=== PATIENT | female | born 1975 | race Caucasian/White ===

== ENCOUNTER 2016-07-07 13:22 | Emergency (ER) | payer BC ==
[2016-07-07] MEDS ORDERED: Adenosine 6 MG/2 ML SDV IVPUSH ONE (13:40)
[2016-07-07] MEDS ORDERED: Adenosine 12 MG/4 ML SDV IVPUSH ONE ×2 (13:47→13:56)
[2016-07-07] MEDS ORDERED: Sodium Chloride 0.9% 10 ML Syringe FLUSH PRN (13:48)
--- NOTE | 2016-07-07 13:50 | EDM.PDOC ---
ED HPI GENERAL MEDICAL PROBLEM - General Chief Complaint: Cardiovascular Problem Stated Complaint: COMING OWN VEHICLE [id number] Time Seen by Provider: 07/07/16 13:35 Source of Information: Reports: Patient, Provider (Dr. Mata), RN, RN Notes Reviewed History Limitations: Reports: No Limitations - History of Present Illness INITIAL COMMENTS - FREE TEXT/NARRATIVE: Arrives by POV with 3 days of rapid heart rate. Denies chest pain. Admits to mild shortness of breath. Onset: Today Location: Reports: Chest Quality: Reports: Ache Severity: Severe Improves with: Reports: None Worsens with: Reports: None Associated Symptoms: Reports: No Other Symptoms Left Ankle Pain Score (Numeric/FACES): 5 - Related Data Allergies Allergy/AdvReac Type Severity Reaction Status Date / Time No Known Allergies Allergy Verified 07/09/16 20:10 Home Meds: Home Meds Acetaminophen [Tylenol] 650 mg PO DAILY 07/07/16 [History] Ibuprofen [Motrin] 800 mg PO Q6H 07/07/16 [History] diphenhydrAMINE HCl [Benadryl] 25 mg PO DAILY 07/07/16 [History] Social & Family History - Family History Family Medical History: Noncontributory - Tobacco Use Smoking Status *Q: Former Smoker - Alcohol Use Alcohol Use History: No ED ROS GENERAL - Review of Systems Review Of Systems: ROS reveals no pertinent complaints other than HPI. ED EXAM, GENERAL - Physical Exam Exam: See Below Exam Limited By: No Limitations General Appearance: Obese Neck: Normal Inspection, Supple, Non-Tender, Full Range of Motion Respiratory/Chest: No Respiratory Distress, Lungs Clear, Normal Breath Sounds, No Accessory Muscle Use, Chest Non-Tender Cardiovascular: Regular Rate, Rhythm GI/Abdominal: Other (benign obese abdomen) Back Exam: Normal Inspection, Full Range of Motion, NT Extremities: Normal Inspection, Normal Range of Motion, Non-Tender, Normal Capillary Refill, No Pedal Edema Neurological: Alert, Oriented, CN II-XII Intact, Normal Cognition, Normal Gait, Normal Reflexes, No Motor/Sensory Deficits Psychiatric: Normal Affect, Normal Mood Skin Exam: Warm, Dry, Intact, Normal Color, No Rash EKG INTERPRETATION EKG Date: 07/07/16 Time: 13:31 Rhythm: other (sinus tachycardia.) Rate (beats/min): 151 [place]: normal P-wave: present ST-T: normal (abnormal T, consider ischemia, diffuse leads.) QT: normal Comparison: NA - no prior EKG EKG Interpretation Comments: EKG #2 done at 1413 showed sinus rhythm with a rate of 87 following adenosine 12mg IVP. Course - Vital Signs Last Recorded V/S: Last Vital Signs Temp 36.7 C 07/07/16 13:25 Pulse 155 H 07/07/16 13:25 Resp 16 07/07/16 13:25 BP 125/70 07/07/16 13:25 Pulse Ox 100 07/07/16 13:25 - Orders/Labs/Meds Labs: Laboratory Tests 07/07/16 07/07/16 07/07/16 Range/Units 14:00 14:00 14:00 WBC 6.9 (5.0-10.0) 10^3/uL RBC 3.97 L (4.2-5.4) 10^6/uL Hgb 11.9 L (12.0-16.0) g/dL Hct 35.7 L (37.0-47.0) % MCV 89.9 (80-100) fL MCH 30.0 (27.0-34.0) pg MCHC 33.3 (33.0-35.0) g/dL Plt Count 150 (150-450) 10^3/uL Neut % (Auto) 58.3 (42.2-75.2) % Lymph % (Auto) 26.1 (20.5-50.1) % [place] % (Auto) 7.0 (2-8) % Eos % (Auto) 7.7 H (1.0-3.0) % Baso % (Auto) 0.9 (0.0-1.0) % D-Dimer, Quantitative < 100 (0-400) ng/mL Sodium 138 (135-145) mmol/L Potassium 4.0 (3.6-5.0) mmol/L Chloride 107 (101-111) mmol/L Carbon Dioxide 26.0 (21.0-31.0) mmol/L Anion Gap 9.0 BUN 15 (7-18) mg/dL Creatinine 0.8 (0.6-1.3) mg/dL Est Cr Clr Drug Dosing TNP Estimated GFR (MDRD) > 60 BUN/Creatinine Ratio 18.75 Glucose 100 (74-105) mg/dL Calcium 8.2 L (8.4-10.2) mg/dl Magnesium 1.7 L (1.8-2.5) mg/dL Total Bilirubin 0.5 (0.2-1.0) mg/dL AST 23 (10-42) IU/L ALT 30 (10-60) IU/L Alkaline Phosphatase 82 (42-121) IU/L Troponin I < 0.02 (0.00-0.02) ng/ml Total Protein 6.2 L (6.7-8.2) g/dl Albumin 3.4 (3.2-5.5) g/dl Globulin 2.8 Albumin/Globulin Ratio 1.21 TSH, Ultra Sensitive (0.35-7.0) uIu/mL 07/07/16 Range/Units 14:00 WBC (5.0-10.0) 10^3/uL RBC (4.2-5.4) 10^6/uL Hgb (12.0-16.0) g/dL Hct (37.0-47.0) % MCV (80-100) fL MCH (27.0-34.0) pg MCHC (33.0-35.0) g/dL Plt Count (150-450) 10^3/uL Neut % (Auto) (42.2-75.2) % Lymph % (Auto) (20.5-50.1) % [place] % (Auto) (2-8) % Eos % (Auto) (1.0-3.0) % Baso % (Auto) (0.0-1.0) % D-Dimer, Quantitative (0-400) ng/mL Sodium (135-145) mmol/L Potassium (3.6-5.0) mmol/L Chloride (101-111) mmol/L Carbon Dioxide (21.0-31.0) mmol/L Anion Gap BUN (7-18) mg/dL Creatinine (0.6-1.3) mg/dL Est Cr Clr Drug Dosing Estimated GFR (MDRD) BUN/Creatinine Ratio Glucose (74-105) mg/dL Calcium (8.4-10.2) mg/dl Magnesium (1.8-2.5) mg/dL Total Bilirubin (0.2-1.0) mg/dL AST (10-42) IU/L ALT (10-60) IU/L Alkaline Phosphatase (42-121) IU/L Troponin I (0.00-0.02) ng/ml Total Protein (6.7-8.2) g/dl Albumin (3.2-5.5) g/dl Globulin Albumin/Globulin Ratio TSH, Ultra Sensitive 2.06 (0.35-7.0) uIu/mL Meds: Medications Discontinued Medications Generic Name Dose Route Start Last Admin Trade Name Wale PRN Reason Stop Dose Admin Adenosine 6 mg 07/07/16 13:40 07/07/16 13:50 Adenocard IVPUSH 07/07/16 13:41 6 mg NOW ONE Administration Adenosine 12 mg 07/07/16 13:47 07/07/16 13:54 Adenocard IVPUSH 07/07/16 13:48 12 mg NOW ONE Administration Adenosine 12 mg 07/07/16 13:56 07/07/16 14:02 Adenocard IVPUSH 07/07/16 13:57 12 mg NOW ONE Administration Sodium Chloride 10 ml 07/07/16 13:48 07/07/16 14:03 Saline Flush FLUSH 10 ml ASDIRECTED PRN Administration Keep Vein Open - Re-Assessments/Exams Free Text/Narrative Re-Assessment/Exam: 07/07/16 14:55 I explained the exam findings, results of all diagnostic tests, working diagnosis, and any potential or additionally considered diagnoses, treatment/ disposition plan, self/home care instructions, rational for the diagnosis/ treatment plan/disposition plan, anticipated course of illness, and follow up instructions to the pt and/or pts family or guardian. The pt and/or pts family or guardian acknowledges understanding of the above explanation(s), and of the signs and symptoms which should prompt the return of the pt to the ER should those or any other concerning symptoms develop. Departure - Departure Time of Disposition: 14:56 Disposition: Home, Self-Care 01 Condition: good Clinical Impression: Paroxysmal supraventricular tachycardia Instructions: Paroxysmal Supraventricular Tachycardia Referrals: PCP,None [Primary Care Provider] - Forms: ED Department Discharge Additional Instructions: Avoid caffeine, nicotine, alcohol, and any over the counter decongestants, as these may cause your heart have a fast rate (SVT episode). Follow up in clinic with your doctor in the 10 days for recheck. Return to ER if your heart rate goes over 110 and remains there for more than 20 to 30 minutes, or if you feel lightheaded, faint, short of breath, or develop chest pain.
[2016-07-07 14:24] LABS: CHLORIDE,CL 107 mmol/L (101-111); SODIUM,NA 138 mmol/L (135-145)
[2016-07-07 14:25] VITALS: BP 125/70
--- NOTE | 2016-07-13 12:24 | EKG ---
07/07/2016 - SAMEER TAYLOR - TIME: 1413 hours. I reviewed the EKG and agree the machine's reading. [facility] /[id number]
--- NOTE | 2016-07-13 13:24 | EKG ---
07/07/2016 - SAMEER TAYLOR - TIME: 1331 hours. I reviewed the EKG and agree with the machine's reading. [facility] /[id number]
== END 2016-07-07 15:36 | disposition home or self-care (01) ==
LOC: DL.ED 13:22
DX: I47.1 Supraventricular tachycardia (principal); Z87.891 Personal history of nicotine dependence
CPT/HCPCS: 36415; 80053; 83735; 84443; 84484; 85025; 85379; 93005; 93010; 96374; 96375; 99284; A9270; J0153; J7050

== ENCOUNTER 2016-07-09 19:07 | Emergency (ER) | payer BC ==
[2016-07-09] MEDS ORDERED: Adenosine 6 MG/2 ML SDV IVPUSH ONE (19:13)
[2016-07-09] MEDS ORDERED: Sodium Chloride 0.9% 1,000 ML IV ONE (19:20)
[2016-07-09] MEDS ORDERED: Adenosine 12 MG/4 ML SDV IVPUSH ONE (19:25)
[2016-07-09] MEDS ORDERED: Adenosine 12 MG/4 ML SDV ONE (19:26)
[2016-07-09] MEDS ORDERED: Metoprolol Tartrate 5 MG/5 ML SDV IVPUSH ONE (19:36)
--- NOTE | 2016-07-09 19:38 | EDM.PDOC ---
ED HPI GENERAL MEDICAL PROBLEM - General Chief Complaint: Cardiovascular Problem Stated Complaint: SUPER VENTRICAL TACHYCARDIA? Time Seen by Provider: 07/09/16 19:15 Source of Information: Reports: Patient History Limitations: Reports: No Limitations - History of Present Illness INITIAL COMMENTS - FREE TEXT/NARRATIVE: c/o of rapid heart rate similar to episode on Wednesday. No chest pain slight SOB , notes episode started this am and rate in 120's this pacheco reported 150 when checked with fit bit Onset: Today Duration: Hour(s):, Recurring Quality: Reports: Same as Previous Episode Severity: Moderate Improves with: Reports: None Associated Symptoms: Denies: Chest Pain, Nausea/Vomiting Headache Pain Score (Numeric/FACES): 8 - Related Data Allergies Allergy/AdvReac Type Severity Reaction Status Date / Time No Known Allergies Allergy Verified 07/09/16 20:10 Home Meds: Home Meds Metoprolol Tartrate 25 mg PO ASDIRECTED 07/10/16 [History] Metoprolol Tartrate 50 mg PO DAILY 07/10/16 [History] Past Medical History Cardiovascular History: Reports: Other (See Below) Other Cardiovascular History: SVT 8-19 years ago that required adenosine x 6 mg and 12 mg [employer] PERSON History: Reports: Other (See Below) Other OB/BYN History: 1996 and v-back 2001 Musculoskeletal History: Reports: Fracture - Past Surgical History GI Surgical History: Reports: Cholecystectomy Other GI Surgeries/Procedures: 2003 Musculoskeletal Surgical History: Reports: Other (See Below) Other Musculoskeletal Surgeries/Procedures:: bilateral ankle and wrist fractures Social & Family History - Family History Family Medical History: Noncontributory - Tobacco Use Smoking Status *Q: Current Every Day Smoker Years of Tobacco use: 15 Packs/Tins Daily: 0.5 Second Hand Smoke Exposure: No - Caffeine Use Caffeine Use: Reports: Coffee, Tea Other Caffeine Use: stopped caffine 2 days ago - Alcohol Use Days Per Week of Alcohol Use: 1 Number of Drinks Per Day: 1 Total Drinks Per Week: 1 - Recreational Drug Use Recreational Drug Use: No ED ROS GENERAL - Review of Systems Review Of Systems: See Below Constitutional: Reports: No Symptoms HEENT: Reports: No Symptoms Respiratory: Reports: Shortness of Breath Cardiovascular: Reports: Palpitations. Denies: Chest Pain GI/Abdominal: Reports: No Symptoms : Reports: No Symptoms Musculoskeletal: Reports: No Symptoms Skin: Reports: No Symptoms Neurological: Reports: No Symptoms Psychiatric: Reports: No Symptoms ED EXAM, GENERAL - Physical Exam Exam: See Below Exam Limited By: No Limitations General Appearance: Alert, Anxious, Mild Distress Eye Exam: Bilateral Eye: EOMI, PERRL Ears: Normal External Exam, Normal TMs Nose: Normal Inspection Throat/Mouth: Normal Inspection Head: Atraumatic, Normocephalic Neck: Normal Inspection Respiratory/Chest: No Respiratory Distress, Lungs Clear, Normal Breath Sounds Cardiovascular: Regular Rate, Rhythm, Tachycardia GI/Abdominal: Normal Bowel Sounds Extremities: Normal Inspection Neurological: Alert, Oriented Psychiatric: Anxious Skin Exam: Warm, Dry, Intact, Normal Color Course - Vital Signs Last Recorded V/S: Last Vital Signs Temp 97.8 F 07/09/16 19:15 Pulse 74 07/09/16 20:38 Resp 16 07/09/16 20:38 BP 107/74 07/09/16 20:38 Pulse Ox 100 07/09/16 20:38 - Orders/Labs/Meds Labs: Laboratory Tests 07/09/16 07/09/16 07/09/16 Range/Units 19:17 19:17 19:17 WBC 8.1 (5.0-10.0) 10^3/uL RBC 4.48 (4.2-5.4) 10^6/uL Hgb 13.4 (12.0-16.0) g/dL Hct 39.4 (37.0-47.0) % MCV 87.9 (80-100) fL MCH 29.9 (27.0-34.0) pg MCHC 34.0 (33.0-35.0) g/dL Plt Count 174 (150-450) 10^3/uL Neut % (Auto) 62.2 (42.2-75.2) % Lymph % (Auto) 25.5 (20.5-50.1) % [place] % (Auto) 5.9 (2-8) % Eos % (Auto) 5.7 H (1.0-3.0) % Baso % (Auto) 0.7 (0.0-1.0) % Sodium 137 (135-145) mmol/L Potassium 3.9 (3.6-5.0) mmol/L Chloride 105 (101-111) mmol/L Carbon Dioxide 26.0 (21.0-31.0) mmol/L Anion Gap 9.9 BUN 12 (7-18) mg/dL Creatinine 0.8 (0.6-1.3) mg/dL Est Cr Clr Drug Dosing TNP Estimated GFR (MDRD) > 60 BUN/Creatinine Ratio 15.00 Glucose 104 (74-105) mg/dL Calcium 8.7 (8.4-10.2) mg/dl Total Bilirubin 0.4 (0.2-1.0) mg/dL AST 29 (10-42) IU/L ALT 34 (10-60) IU/L Alkaline Phosphatase 86 (42-121) IU/L CK-MB (CK-2) 1.70 (0.4-4.7) ng/mL Troponin I < 0.02 (0.00-0.02) ng/ml Total Protein 7.0 (6.7-8.2) g/dl Albumin 3.8 (3.2-5.5) g/dl Globulin 3.2 Albumin/Globulin Ratio 1.19 Amylase 35 (28-100) U/L Lipase 25 (22-51) U/L Ethyl Alcohol 7 mg/dL Meds: Medications Discontinued Medications Generic Name Dose Route Start Last Admin Trade Name Onelq PRN Reason Stop Dose Admin Adenosine 6 mg 07/09/16 19:13 07/09/16 19:22 Adenocard IVPUSH 07/09/16 19:14 6 mg NOW ONE Administration Adenosine Confirm 07/09/16 19:26 07/09/16 19:39 Adenocard Administered 07/09/16 19:27 Not Given Dose 12 mg .ROUTE .STK-MED ONE Adenosine 12 mg 07/09/16 19:25 07/09/16 19:27 Adenocard IVPUSH 07/09/16 19:26 12 mg NOW ONE Administration Sodium Chloride 1,000 mls @ 999 mls/hr 07/09/16 19:20 07/09/16 19:20 Normal Saline IV 07/09/16 20:20 999 mls/hr .BOLUS ONE Administration Metoprolol Tartrate 2.5 mg 07/09/16 19:36 07/09/16 19:41 Lopressor IVPUSH 07/09/16 19:37 2.5 mg ONETIME ONE Administration Metoprolol Tartrate Confirm 07/09/16 20:18 07/09/16 21:00 Lopressor Administered 07/09/16 20:19 Not Given Dose 50 mg .ROUTE .STK-MED ONE Metoprolol Tartrate 50 mg 07/09/16 20:18 Lopressor PO 07/09/16 20:19 .STK-MED ONE - Re-Assessments/Exams Free Text/Narrative Re-Assessment/Exam: 07/12/16 06:33 adenosine 6mg no response, [id number] with conversion to NSR, followed with lopressor, Observed with continued rate control. Departure - Departure Time of Disposition: 20:41 Disposition: Home, Self-Care 01 Condition: good Clinical Impression: Paroxysmal supraventricular tachycardia Instructions: Paroxysmal Supraventricular Tachycardia, [id number] Referrals: PCP,None [Primary Care Provider] - Forms: ED Department Discharge Additional Instructions: metoprolol 25mg one twice daily monitor blood pressure and heart rate follow up urgently if HR greater than 120 or less than 60 avoid caffeine and energy drinks increase fluid intake establish primary care and follow up next week return to ER if symptoms return
[2016-07-09 19:43] LABS: CHLORIDE,CL 105 mmol/L (101-111); SODIUM,NA 137 mmol/L (135-145)
[2016-07-09] MEDS ORDERED: Metoprolol Tartrate 50 MG Tab PO ONE (20:18)
[2016-07-09] MEDS ORDERED: Metoprolol Tartrate 50 MG Tab ONE (20:18)
[2016-07-09 20:38] VITALS: BP 107/74
--- NOTE | 2016-07-13 12:06 | EKG ---
07/09/2016 - SAMEER TAYLOR - TIME: 1927hours. I reviewed the EKG and agreed with the machine's reading. [facility] /[id number]
--- NOTE | 2016-07-13 12:06 | EKG ---
07/09/2016 - SAMEER TAYLOR - TIME: 1917 hours. I reviewed the EKG and agree with the machine's reading. [facility] /[id number]
== END 2016-07-09 20:51 | disposition home or self-care (01) ==
LOC: DL.ED 19:07
DX: I47.1 Supraventricular tachycardia (principal); F17.210 Nicotine dependence, cigarettes, uncomplicated; Z90.49 Acquired absence of other specified parts of digestive tract; Z79.899 Other long term (current) drug therapy
CPT/HCPCS: 36415; 80053; 82150; 82553; 83690; 84484; 85025; 93005; 93010; 96361; 96374; 96375; 99285; A9270; G0480; J0153; J7030; 99284; J3490

== ENCOUNTER 2016-07-10 17:43 | Emergency (ER) | payer BC ==
[~2016-07-10 17:43] MED LIST: Adenosine 12 MG/4 ML SDV IVPUSH ONE; Sodium Chloride 0.9% 1,000 ML IV ONE
[2016-07-10] MEDS ORDERED: Adenosine 12 MG/4 ML SDV IVPUSH ONE (18:00)
[2016-07-10] MEDS ORDERED: Adenosine 12 MG/4 ML SDV ONE (18:02)
[2016-07-10 18:11] LABS: CHLORIDE,CL 105 mmol/L (101-111); SODIUM,NA 137 mmol/L (135-145)
[2016-07-10] MEDS ORDERED: Metoprolol Tartrate 5 MG/5 ML SDV IVPUSH ONE (18:33)
[2016-07-10 18:40] VITALS: BP 128/91
--- NOTE | 2016-07-10 19:16 | EDM.PDOC ---
ED HPI GENERAL MEDICAL PROBLEM - General Chief Complaint: Cardiovascular Problem Stated Complaint: SVT Time Seen by Provider: 07/10/16 17:50 Source of Information: Reports: Patient History Limitations: Reports: No Limitations - History of Present Illness INITIAL COMMENTS - FREE TEXT/NARRATIVE: History of SVT about 8 or 9 years ago when in [place]. Treated and then had recurrence of SVT. 2 days ago was here in the ED for SVT associated with palpitations and without chest pain, shortness of breath., nausea, diaphoresis. In the ED 2 days ago treated with 6 mg, 12 mg adenosine. Labs done were negative. Came to ED yesterday for SVT which was responsive to adenosine. She was started on metoprolo 25 mg daily. She had symptoms of SVT and took Metoprolo 25 mg three times today for a total of 75 mg. There was no blood pressure problems associated with the symptoms or with the interventions in the ED. Labs have been negative including troponin, d dimer, TSH was normal. Comprehensive metabolic panels have been normal. Onset: Today, Sudden Duration: Getting Worse, Intermittent Location: Reports: Chest Quality: Reports: Same as Previous Episode Severity: Moderate Improves with: Reports: Medication Worsens with: Reports: None Associated Symptoms: Reports: No Other Symptoms Treatments [employer]: Reports: Other Medication(s) - Related Data Allergies Allergy/AdvReac Type Severity Reaction Status Date / Time No Known Allergies Allergy Verified 07/09/16 20:10 Home Meds: Home Meds Metoprolol Tartrate 25 mg PO ASDIRECTED 07/10/16 [History] Metoprolol Tartrate 50 mg PO DAILY 07/10/16 [History] Past Medical History Cardiovascular History: Reports: Other (See Below) Other Cardiovascular History: SVT 8-19 years ago that required adenosine x 6 mg and 12 mg [employer] History: Reports: Other (See Below) Other OB/BYN History: 1996 and v-back 2001 Musculoskeletal History: Reports: Fracture - Past Surgical History Musculoskeletal Surgical History: Reports: Other (See Below) Social & Family History - Family History Family Medical History: Noncontributory - Tobacco Use Smoking Status *Q: Current Every Day Smoker Years of Tobacco use: 15 Packs/Tins Daily: 0.5 Second Hand Smoke Exposure: No - Caffeine Use Caffeine Use: Reports: Coffee, Tea Other Caffeine Use: stopped caffine 2 days ago - Alcohol Use Days Per Week of Alcohol Use: 1 Number of Drinks Per Day: 1 Total Drinks Per Week: 1 - Recreational Drug Use Recreational Drug Use: No ED ROS GENERAL - Review of Systems Review Of Systems: ROS reveals no pertinent complaints other than HPI. ED EXAM, GENERAL - Physical Exam Exam: See Below Exam Limited By: No Limitations General Appearance: Alert, WD/WN, No Apparent Distress Eye Exam: Bilateral Eye: Normal Inspection Ears: Normal External Exam Nose: Normal Inspection Throat/Mouth: Normal Inspection Head: Atraumatic Neck: Normal Inspection, Supple Respiratory/Chest: Lungs Clear, Normal Breath Sounds, Chest Non-Tender Cardiovascular: Normal Peripheral Pulses, Regular Rate, Rhythm, No Edema, No Murmur, No Rub Peripheral Pulses: 2+: Radial (L), Radial (R), Posterior Tibial (L), Posterior Tibial (R), Dorsalis Pedis (L), Dorsalis Pedis (R) GI/Abdominal: Soft, Non-Tender Back Exam: Normal Inspection Neurological: Alert, Oriented, Normal Cognition, No Motor/Sensory Deficits Course - Vital Signs Text/Narrative:: peripheral IV established, one liter normal saline given over the ED course. Adenosine 12 mg IV was given and then repeated. Metoprolol 5 mg IV with decrease in heart rate into the 60's - 70s with transient increase into the low 130 range. Labs were again normal. Portable CXR showed mild cardiomegaly Last Recorded V/S: Last Vital Signs Temp 97.8 F 07/10/16 18:25 Pulse 128 H 07/10/16 18:40 Resp 17 07/10/16 18:25 BP 128/91 H 07/10/16 18:40 Pulse Ox 100 07/10/16 18:25 - Orders/Labs/Meds Orders: Active Orders 24 hr Category Date Time Status EKG 12 Lead [EKG Documentation Completion] [RC] STAT Care 07/10/16 17:30 Active EKG 12 Lead [EKG Documentation Completion] [RC] URGENT Care 07/10/16 19:05 Active Chest 1V Frontal [CR] Urgent Exams 07/10/16 18:21 Taken Labs: Laboratory Tests 07/10/16 07/10/16 07/10/16 Range/Units 17:45 17:45 17:45 WBC 9.7 (5.0-10.0) 10^3/uL RBC 4.66 (4.2-5.4) 10^6/uL Hgb 13.8 (12.0-16.0) g/dL Hct 41.4 (37.0-47.0) % MCV 88.8 (80-100) fL MCH 29.6 (27.0-34.0) pg MCHC 33.3 (33.0-35.0) g/dL Plt Count 176 (150-450) 10^3/uL Neut % (Auto) 65.3 (42.2-75.2) % Lymph % (Auto) 20.9 (20.5-50.1) % [place] % (Auto) 6.3 (2-8) % Eos % (Auto) 7.0 H (1.0-3.0) % Baso % (Auto) 0.5 (0.0-1.0) % Sodium 137 (135-145) mmol/L Potassium 3.7 (3.6-5.0) mmol/L Chloride 105 (101-111) mmol/L Carbon Dioxide 27.0 (21.0-31.0) mmol/L Anion Gap 8.7 BUN 16 (7-18) mg/dL Creatinine 0.9 (0.6-1.3) mg/dL Est Cr Clr Drug Dosing TNP Estimated GFR (MDRD) > 60 BUN/Creatinine Ratio 17.77 Glucose 103 (74-105) mg/dL Calcium 8.7 (8.4-10.2) mg/dl Total Bilirubin 0.4 (0.2-1.0) mg/dL AST 23 (10-42) IU/L ALT 34 (10-60) IU/L Alkaline Phosphatase 88 (42-121) IU/L Troponin I < 0.02 (0.00-0.02) ng/ml B-Natriuretic Peptide 222 H (0-100) pg/ml Total Protein 7.4 (6.7-8.2) g/dl Albumin 3.9 (3.2-5.5) g/dl Globulin 3.5 Albumin/Globulin Ratio 1.11 Meds: Medications Discontinued Medications Generic Name Dose Route Start Last Admin Trade Name Freq PRN Reason Stop Dose Admin Adenosine 12 mg 07/10/16 17:43 07/10/16 17:54 Adenocard IVPUSH 07/10/16 17:44 12 mg NOW ONE Administration Adenosine 12 mg 07/10/16 18:00 07/10/16 18:03 Adenocard IVPUSH 07/10/16 18:01 12 mg NOW ONE Administration Adenosine Confirm 07/10/16 18:02 07/10/16 18:30 Adenocard Administered 07/10/16 18:03 Not Given Dose 12 mg .ROUTE .STK-MED ONE Sodium Chloride 1,000 mls @ 999 mls/hr 07/10/16 17:43 07/10/16 18:03 Normal Saline IV 07/10/16 18:43 999 mls/hr .BOLUS ONE Administration Metoprolol Tartrate 5 mg 07/10/16 18:33 07/10/16 18:40 Lopressor IVPUSH 07/10/16 18:34 5 mg ONETIME ONE Administration Departure - Departure Time of Disposition: 19:34 Disposition: DC/Tfer to [facility] Reason for Transfer *Q: Other (error) Condition: good Clinical Impression: SVT (supraventricular tachycardia) Referrals: PCP,Unobtain [Primary Care Provider] - Forms: Interfacility Transfer EMTALA - My Orders Last 24 Hours: My Active Orders 07/10/16 17:30 EKG 12 Lead [EKG Documentation Completion] [RC] STAT 07/10/16 18:21 Chest 1V Frontal [CR] Urgent 07/10/16 19:05 EKG 12 Lead [EKG Documentation Completion] [RC] URGENT - Assessment/Plan Last 24 Hours: My Active Orders 07/10/16 17:30 EKG 12 Lead [EKG Documentation Completion] [RC] STAT 07/10/16 18:21 Chest 1V Frontal [CR] Urgent 07/10/16 19:05 EKG 12 Lead [EKG Documentation Completion] [RC] URGENT
--- NOTE | 2016-07-14 13:57 | EKG ---
07/10/2016 - SAMEER TAYLOR - TIME: 1857 hours. I reviewed the EKG, agree with the machine's reading. [facility] /[id number]
--- NOTE | 2016-07-14 14:10 | EKG ---
07/10/2016 - SAMEER TAYLOR - TIME: 1735 hours. I reviewed the EKG and agree with the machine's reading. [facility] /[id number]
== END 2016-07-10 19:37 ==
LOC: DL.ED 17:43
DX: I47.1 Supraventricular tachycardia (principal); F17.210 Nicotine dependence, cigarettes, uncomplicated; Z79.899 Other long term (current) drug therapy
CPT/HCPCS: 36415; 71010; 80053; 83880; 84484; 85025; 93005; 93010; 99284; 99285; A9270; J7030; 96361; 96374; 96375; J0153; J3490

== ENCOUNTER 2016-10-30 19:35 | Emergency (ER) | payer BC ==
[2016-10-30] MEDS ORDERED: Adenosine 6 MG/2 ML SDV IVPUSH ONE (19:41)
[2016-10-30] MEDS ORDERED: Sodium Chloride 0.9% 1,000 ML IV ONE (19:41)
[2016-10-30] MEDS ORDERED: Adenosine 12 MG/4 ML SDV ONE (19:53)
[2016-10-30] MEDS ORDERED: Adenosine 12 MG/4 ML SDV IVPUSH ONE (19:54)
[2016-10-30 20:16] LABS: CHLORIDE,CL 102 mmol/L (101-111); SODIUM,NA 141 mmol/L (135-145)
[2016-10-30] MEDS ORDERED: Metoprolol Tartrate 25 MG Tab PO ONE (21:35)
--- NOTE | 2016-10-30 21:41 | EDM.PDOC ---
ED HPI GENERAL MEDICAL PROBLEM - General Chief Complaint: Cardiovascular Problem Stated Complaint: COLD,CLAMMY, HEART RATE 162 Time Seen by Provider: 10/30/16 19:40 Source of Information: Reports: Patient - History of Present Illness INITIAL COMMENTS - FREE TEXT/NARRATIVE: onset rapid HR at 5 pm tonight. Hx SVT abilation x 2. No problems since until tonight. felt fluttery in chest and sweaty. Tried vagal maneuver and coughing without improvement. States has not had caffeine since last episode. Continues to smoke. 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 (See Below) Other OB/BYN History: 1996 and v-back 2001 Musculoskeletal History: Reports: Fracture Hematologic History: Reports: Blood Transfusion(s) Dermatologic History: Reports: Other (See Below) Other Dermatologic History: mole removed - Past Surgical History Cardiovascular Surgical History: Reports: Cardiac Ablation Other Cardiovascular Surgeries/Procedures: Cardiac Ablation in July or August 2016 GI Surgical History: Reports: Cholecystectomy Other GI Surgeries/Procedures: 2003 Musculoskeletal Surgical History: Reports: Other (See Below) Other Musculoskeletal Surgeries/Procedures:: bilateral ankle and wrist fractures Social & Family History - Family History Family Medical History: Noncontributory - Tobacco Use Smoking Status *Q: Current Status Unknown Years of Tobacco use: 15 Packs/Tins Daily: 0.5 Second Hand Smoke Exposure: Yes - Caffeine Use Caffeine Use: Reports: Coffee, Tea Other Caffeine Use: stopped caffine 2 days ago - Alcohol Use Days Per Week of Alcohol Use: 1 Number of Drinks Per Day: 1 Total Drinks Per Week: 1 - Recreational Drug Use Recreational Drug Use: No ED ROS GENERAL - Review of Systems Review Of Systems: See Below Constitutional: Reports: No Symptoms HEENT: Reports: No Symptoms Respiratory: Reports: No Symptoms Cardiovascular: Reports: Palpitations Endocrine: Reports: No Symptoms GI/Abdominal: Reports: No Symptoms Skin: Reports: No Symptoms Neurological: Reports: No Symptoms Psychiatric: Reports: No Symptoms ED EXAM, GENERAL - Physical Exam Exam: See Below Exam Limited By: No Limitations General Appearance: Alert, Mild Distress, Obese Eye Exam: Bilateral Eye: EOMI Ears: Normal External Exam Nose: Normal Inspection Throat/Mouth: Normal Inspection Head: Atraumatic, Normocephalic Neck: Normal Inspection, Full Range of Motion Respiratory/Chest: No Respiratory Distress, Wheezing (occasional wheeze upper right ) Cardiovascular: Regular Rate, Rhythm, Tachycardia GI/Abdominal: Normal Bowel Sounds, Soft, Non-Tender Extremities: Normal Inspection, Normal Range of Motion Neurological: Alert, Oriented, Normal Cognition Psychiatric: Normal Affect, Normal Mood Skin Exam: Warm, Normal Color, Diaphoretic Course - Vital Signs Last Recorded V/S: Last Vital Signs Temp 96.5 F 10/30/16 19:51 Pulse 83 10/30/16 21:56 Resp 20 10/30/16 19:51 BP 100/58 L 10/30/16 21:56 Pulse Ox 99 10/30/16 20:00 - Orders/Labs/Meds Orders: Active Orders 24 hr Category Date Time Status EKG 12 Lead [EKG Documentation Completion] [RC] URGENT Care 10/30/16 19:39 Active EKG 12 Lead [EKG Documentation Completion] [RC] URGENT Care 10/30/16 19:58 Active Labs: Laboratory Tests 10/30/16 10/30/16 10/30/16 Range/Units 19:46 19:46 19:46 WBC 11.4 H (5.0-10.0) 10^3/uL RBC 5.13 (4.2-5.4) 10^6/uL Hgb 15.1 (12.0-16.0) g/dL Hct 44.6 (37.0-47.0) % MCV 86.9 (80-100) fL MCH 29.4 (27.0-34.0) pg MCHC 33.9 (33.0-35.0) g/dL Plt Count 260 (150-450) 10^3/uL Neut % (Auto) 63.8 (42.2-75.2) % Lymph % (Auto) 27.1 (20.5-50.1) % [place] % (Auto) 5.8 (2-8) % Eos % (Auto) 2.8 (1.0-3.0) % Baso % (Auto) 0.5 (0.0-1.0) % D-Dimer, Quantitative (0-400) ng/mL Sodium 141 (135-145) mmol/L Potassium 3.8 (3.6-5.0) mmol/L Chloride 102 (101-111) mmol/L Carbon Dioxide 26.0 (21.0-31.0) mmol/L Anion Gap 16.8 BUN 12 (7-18) mg/dL Creatinine 1.1 (0.6-1.3) mg/dL Est Cr Clr Drug Dosing 68.85 mL/min Estimated GFR (MDRD) 55 BUN/Creatinine Ratio 10.90 Glucose 115 H (74-105) mg/dL Calcium 9.0 (8.4-10.2) mg/dl Total Bilirubin 0.6 (0.2-1.0) mg/dL AST 24 (10-42) IU/L ALT 26 (10-60) IU/L Alkaline Phosphatase 95 (42-121) IU/L Troponin I < 0.02 (0.00-0.02) ng/ml Total Protein 7.4 (6.7-8.2) g/dl Albumin 3.8 (3.2-5.5) g/dl Globulin 3.6 Albumin/Globulin Ratio 1.06 Amylase 25 L (28-100) U/L Lipase 20 L (22-51) U/L TSH, Ultra Sensitive 2.39 (0.35-7.0) uIu/mL 10/30/16 10/30/16 Range/Units 19:46 23:50 WBC (5.0-10.0) 10^3/uL RBC (4.2-5.4) 10^6/uL Hgb (12.0-16.0) g/dL Hct (37.0-47.0) % MCV (80-100) fL MCH (27.0-34.0) pg MCHC (33.0-35.0) g/dL Plt Count (150-450) 10^3/uL Neut % (Auto) (42.2-75.2) % Lymph % (Auto) (20.5-50.1) % [place] % (Auto) (2-8) % Eos % (Auto) (1.0-3.0) % Baso % (Auto) (0.0-1.0) % D-Dimer, Quantitative 104 (0-400) ng/mL Sodium (135-145) mmol/L Potassium (3.6-5.0) mmol/L Chloride (101-111) mmol/L Carbon Dioxide (21.0-31.0) mmol/L Anion Gap BUN (7-18) mg/dL Creatinine (0.6-1.3) mg/dL Est Cr Clr Drug Dosing mL/min Estimated GFR (MDRD) BUN/Creatinine Ratio Glucose (74-105) mg/dL Calcium (8.4-10.2) mg/dl Total Bilirubin (0.2-1.0) mg/dL AST (10-42) IU/L ALT (10-60) IU/L Alkaline Phosphatase (42-121) IU/L Troponin I < 0.02 (0.00-0.02) ng/ml Total Protein (6.7-8.2) g/dl Albumin (3.2-5.5) g/dl Globulin Albumin/Globulin Ratio Amylase (28-100) U/L Lipase (22-51) U/L TSH, Ultra Sensitive (0.35-7.0) uIu/mL Meds: Medications Discontinued Medications Generic Name Dose Route Start Last Admin Trade Name Onelq PRN Reason Stop Dose Admin Adenosine 6 mg 10/30/16 19:41 10/30/16 19:49 Adenocard IVPUSH 10/30/16 19:42 6 mg NOW ONE Administration Adenosine 12 mg 10/30/16 19:54 10/30/16 19:56 Adenocard IVPUSH 10/30/16 19:55 12 mg NOW ONE Administration Adenosine Confirm 10/30/16 19:53 10/30/16 20:01 Adenocard Administered 10/30/16 19:54 12 mg Dose Administration 12 mg .ROUTE .STK-MED ONE Sodium Chloride 1,000 mls @ 999 mls/hr 10/30/16 19:41 10/30/16 19:49 Normal Saline IV 10/30/16 20:41 999 mls/hr .BOLUS ONE Administration Metoprolol Tartrate 25 mg 10/30/16 21:35 10/30/16 21:56 Lopressor PO 10/30/16 21:36 25 mg ONETIME ONE Administration - Radiology Interpretation Free Text/Narrative:: CXR negative - Re-Assessments/Exams Free Text/Narrative Re-Assessment/Exam: No response with initial 6 mg Adenosine IVP, Repeated at 12 mg with conversion to NSR rate 80's. BP stable. Monitored on telemetry with continued sinus rhythm. VSS. Asymptomatic. Repeat troponin negative. Metoprolol initiated. Home with instructions for emergent follow up if recurrent symptoms. 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 Departure - Departure Time of Disposition: 00:35 Disposition: Home, Self-Care Condition: Good Clinical Impression: Paroxysmal supraventricular tachycardia Instructions: Paroxysmal Supraventricular Tachycardia, [id number] Referrals: PCP,Unobtain [Ordering Only Provider] - Forms: ED Department Discharge Additional Instructions: light activity no caffeine, tobacco or energy drinks metoprolol 25mg twice daily Follow up with restaurant floor manager on Wednesday Emergent follow up if recurrent symptoms - My Orders Last 24 Hours: My Active Orders 10/30/16 19:39 EKG 12 Lead [EKG Documentation Completion] [RC] URGENT 10/30/16 19:58 EKG 12 Lead [EKG Documentation Completion] [RC] URGENT - Assessment/Plan Last 24 Hours: My Active Orders 10/30/16 19:39 EKG 12 Lead [EKG Documentation Completion] [RC] URGENT 10/30/16 19:58 EKG 12 Lead [EKG Documentation Completion] [RC] URGENT
[2016-10-30 21:57] VITALS: BP 100/58
--- NOTE | 2016-11-23 10:04 | EKG ---
10/30/2016- SAMEER TAYLOR - This is the second EKG for the patient on the same day. This is showing sinus tachycardia with a ventricular rate of 157 beats per minute. Repolarization abnormalities into the precordial leads, possible ischemia into the anterolateral leads. Some ST-T changes into the precordial leads. Abnormal EKG. [facility] /[id number]
--- NOTE | 2016-11-23 10:51 | EKG ---
10/30/2016- SAMEER TAYLOR - This is a 12-lead standard EKG showing sinus tachycardia with ventricular rate 157 beats per minute. Repolarization abnormalities in the precordial leads. No significant ST-T changes. [facility] /[id number]
--- NOTE | 2016-12-14 19:51 | EKG ---
10/30/2016 - SAMEER TAYLOR CACHORRO - TIME: 1953 hours. This is the second of two 12-lead EKGs taken approximately 10 minutes apart. This 12-lead EKG now shows a normal sinus rhythm with a ventricular rate of 98, normal axis and intervals. No acute ST-segment or T-wave changes. This EKG was performed following the administration of IV adenosine for the previous sinus tachycardia on the first 12-lead EKG. [facility] /[id number]
--- NOTE | 2016-12-14 19:57 | EKG ---
10/30/2016 - SAMEER TAYLOR CACHORRO - TIME: 1941 hours. This is the first of two 12-lead EKG's performed approximately 10 minutes apart. This 12-lead EKG shows a sinus tachycardia with a ventricular rate of 157. Normal axis. No acute ST-segment changes. The T-wave changes seen, most likely are rate related. [facility] /[id number]
== END 2016-10-31 00:57 | disposition home or self-care (01) ==
LOC: DL.ED 19:35
DX: I47.1 Supraventricular tachycardia (principal); Z90.49 Acquired absence of other specified parts of digestive tract; Z79.899 Other long term (current) drug therapy; Z98.890 Other specified postprocedural states
CPT/HCPCS: 36415; 71010; 80053; 82150; 83690; 84443; 84484; 85025; 85379; 93005; 96365; 96366; 96375; 99284; A9270; J0153; J7030

== ENCOUNTER 2016-11-15 16:34 | Emergency (ER) | payer BC ==
[2016-11-15] MEDS ORDERED: Metoprolol Tartrate 50 MG Tab PO ONE (16:50)
--- NOTE | 2016-11-15 16:54 | EDM.PDOC ---
<Kadeem Vicente - Last Filed: 11/15/16 21:21> ED HPI GENERAL MEDICAL PROBLEM - General Chief Complaint: General Stated Complaint: HIGH HEART RATE [id number] Time Seen by Provider: 11/15/16 16:50 - Related Data Allergies Allergy/AdvReac Type Severity Reaction Status Date / Time No Known Allergies Allergy Verified 07/09/16 20:10 Home Meds: Home Meds Metoprolol Tartrate 50 mg PO DAILY 07/10/16 [History] Course - Vital Signs Last Recorded V/S: Last Vital Signs Temp 36.2 C 11/15/16 18:44 Pulse 136 H 11/15/16 18:44 Resp 16 11/15/16 18:44 BP 111/47 L 11/15/16 18:44 Pulse Ox 98 11/15/16 18:44 Orthostatic Blood Pressure [ 94/54 Standing] Orthostatic Blood Pressure [ 86/32 Sitting] Orthostatic Blood Pressure [ 102/47 Supine] - Orders/Labs/Meds Labs: Laboratory Tests 11/15/16 11/15/16 Range/Units 17:01 17:01 WBC 9.5 (5.0-10.0) 10^3/uL RBC 4.92 (4.2-5.4) 10^6/uL Hgb 14.7 (12.0-16.0) g/dL Hct 43.9 (37.0-47.0) % MCV 89.2 (80-100) fL MCH 29.9 (27.0-34.0) pg MCHC 33.5 (33.0-35.0) g/dL Plt Count 217 (150-450) 10^3/uL Neut % (Auto) 63.3 (42.2-75.2) % Lymph % (Auto) 25.7 (20.5-50.1) % [place] % (Auto) 6.1 (2-8) % Eos % (Auto) 4.4 H (1.0-3.0) % Baso % (Auto) 0.5 (0.0-1.0) % Sodium 140 (135-145) mmol/L Potassium 4.2 (3.6-5.0) mmol/L Chloride 102 (101-111) mmol/L Carbon Dioxide 28.0 (21.0-31.0) mmol/L Anion Gap 14.2 BUN 16 (7-18) mg/dL Creatinine 1.0 (0.6-1.3) mg/dL Est Cr Clr Drug Dosing 72.72 mL/min Estimated GFR (MDRD) > 60 BUN/Creatinine Ratio 16.00 Glucose 146 H (74-105) mg/dL Calcium 9.0 (8.4-10.2) mg/dl Total Bilirubin 0.5 (0.2-1.0) mg/dL AST 17 (10-42) IU/L ALT 18 (10-60) IU/L Alkaline Phosphatase 77 (42-121) IU/L Troponin I < 0.02 (0.00-0.02) ng/ml Total Protein 6.7 (6.7-8.2) g/dl Albumin 3.6 (3.2-5.5) g/dl Globulin 3.1 Albumin/Globulin Ratio 1.16 Meds: Medications Discontinued Medications Generic Name Dose Route Start Last Admin Trade Name Freq PRN Reason Stop Dose Admin Adenosine 6 mg 11/15/16 19:09 11/15/16 19:18 Adenocard IVPUSH 11/15/16 19:10 6 mg NOW ONE Administration Adenosine 12 mg 11/15/16 19:21 11/15/16 19:24 Adenocard IVPUSH 11/15/16 19:22 12 mg NOW ONE Administration Adenosine Confirm 11/15/16 19:23 Adenocard Administered 11/15/16 19:24 Dose 12 mg .ROUTE .STK-MED ONE Sodium Chloride 1,000 mls @ 999 mls/hr 11/15/16 17:29 11/15/16 17:32 Normal Saline IV 11/15/16 18:29 999 mls/hr .BOLUS ONE Administration Metoprolol Tartrate 100 mg 11/15/16 16:50 11/15/16 16:54 Lopressor PO 11/15/16 16:51 100 mg ONETIME ONE Administration - Re-Assessments/Exams Free Text/Narrative Re-Assessment/Exam: 11/15/16 19:09 re-exam; HR 136s, feeling "ok" presently with occasional chest tightness for few seconds. states pending 2nd ablation on . was told she might eventually need pacer. 11/15/16 21:21 ambulated about without problems wants to go home. Departure - Departure Time of Disposition: 21:21 Disposition: Home, Self-Care 01 Condition: Good Clinical Impression: SVT (supraventricular tachycardia) Instructions: Paroxysmal Supraventricular Tachycardia, [id number] Referrals: PCP,Not In Area [Primary Care Provider] - Forms: ED Department Discharge Additional Instructions: 1) notify customer support professional tomorrow of tonight's event 2) rest 3) return if there is any change or concern <Scott Rubin - Last Filed: 11/16/16 14:04> ED HPI GENERAL MEDICAL PROBLEM - General Source of Information: Reports: Patient History Limitations: Reports: No Limitations - History of Present Illness INITIAL COMMENTS - FREE TEXT/NARRATIVE: 41 yo white female w/ PMHx. A-fib. Pt. c/o rapid HR and no Chest pain Onset: Today Onset Date: 11/15/16 Onset Time: 15:00 Duration: Hour(s): Location: Reports: Chest Improves with: Reports: None Worsens with: Reports: None Context: Reports: Other (pt states PMHx. 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) Other OB/BYN History: 1996 and v-back 2001 Musculoskeletal History: Reports: Fracture Hematologic History: Reports: Blood Transfusion(s) Dermatologic History: Reports: Other (See Below) Other Dermatologic History: mole removed - Past Surgical History Cardiovascular Surgical History: Reports: Cardiac Ablation Other Cardiovascular Surgeries/Procedures: Cardiac Ablation in July or August 2016 GI Surgical History: Reports: Cholecystectomy Other GI Surgeries/Procedures: 2003 Musculoskeletal Surgical History: Reports: Other (See Below) Other Musculoskeletal Surgeries/Procedures:: bilateral ankle and wrist fractures Social & Family History - Family History Family Medical History: Noncontributory - Tobacco Use Smoking Status *Q: Current Status Unknown Years of Tobacco use: 15 Packs/Tins Daily: 0.5 Second Hand Smoke Exposure: Yes - Caffeine Use Caffeine Use: Reports: Coffee, Tea Other Caffeine Use: stopped caffine 2 days ago - Alcohol Use Days Per Week of Alcohol Use: 1 Number of Drinks Per Day: 1 Total Drinks Per Week: 1 - Recreational Drug Use Recreational Drug Use: No ED ROS GENERAL - Review of Systems Review Of Systems: See Below Constitutional: Reports: No Symptoms HEENT: Reports: No Symptoms Respiratory: Reports: No Symptoms Cardiovascular: Reports: Palpitations Endocrine: Reports: No Symptoms GI/Abdominal: Reports: No Symptoms : Reports: No Symptoms Musculoskeletal: Reports: No Symptoms Skin: Reports: No Symptoms Neurological: Reports: No Symptoms Psychiatric: Reports: No Symptoms Hematologic/Lymphatic: Reports: No Symptoms Immunologic: Reports: No Symptoms ED EXAM, GENERAL - Physical Exam Exam: See Below Exam Limited By: No Limitations General Appearance: Alert, WD/WN, No Apparent Distress Eye Exam: Bilateral Eye: EOMI, PERRL Ears: Normal External Exam Nose: Normal Inspection Throat/Mouth: Normal Inspection Head: Atraumatic Neck: Normal Inspection Respiratory/Chest: No Respiratory Distress Cardiovascular: Irregularly Irregular GI/Abdominal: Normal Bowel Sounds Back Exam: Normal Inspection, Full Range of Motion Extremities: Normal Inspection, Normal Range of Motion Neurological: Alert, Oriented, CN II-XII Intact Psychiatric: Normal Affect Skin Exam: Warm, Dry, Intact Lymphatic: No Adenopathy Course - Orders/Labs/Meds Labs: Laboratory Tests 11/15/16 11/15/16 Range/Units 17:01 17:01 WBC 9.5 (5.0-10.0) 10^3/uL RBC 4.92 (4.2-5.4) 10^6/uL Hgb 14.7 (12.0-16.0) g/dL Hct 43.9 (37.0-47.0) % MCV 89.2 (80-100) fL MCH 29.9 (27.0-34.0) pg MCHC 33.5 (33.0-35.0) g/dL Plt Count 217 (150-450) 10^3/uL Neut % (Auto) 63.3 (42.2-75.2) % Lymph % (Auto) 25.7 (20.5-50.1) % [place] % (Auto) 6.1 (2-8) % Eos % (Auto) 4.4 H (1.0-3.0) % Baso % (Auto) 0.5 (0.0-1.0) % Sodium 140 (135-145) mmol/L Potassium 4.2 (3.6-5.0) mmol/L Chloride 102 (101-111) mmol/L Carbon Dioxide 28.0 (21.0-31.0) mmol/L Anion Gap 14.2 BUN 16 (7-18) mg/dL Creatinine 1.0 (0.6-1.3) mg/dL Est Cr Clr Drug Dosing 72.72 mL/min Estimated GFR (MDRD) > 60 BUN/Creatinine Ratio 16.00 Glucose 146 H (74-105) mg/dL Calcium 9.0 (8.4-10.2) mg/dl Total Bilirubin 0.5 (0.2-1.0) mg/dL AST 17 (10-42) IU/L ALT 18 (10-60) IU/L Alkaline Phosphatase 77 (42-121) IU/L Troponin I < 0.02 (0.00-0.02) ng/ml Total Protein 6.7 (6.7-8.2) g/dl Albumin 3.6 (3.2-5.5) g/dl Globulin 3.1 Albumin/Globulin Ratio 1.16 Meds: Medications Discontinued Medications Generic Name Dose Route Start Last Admin Trade Name Wale PRN Reason Stop Dose Admin Adenosine 6 mg 11/15/16 19:09 11/15/16 19:18 Adenocard IVPUSH 11/15/16 19:10 6 mg NOW ONE Administration Adenosine 12 mg 11/15/16 19:21 11/15/16 19:24 Adenocard IVPUSH 11/15/16 19:22 12 mg NOW ONE Administration Adenosine Confirm 11/15/16 19:23 Adenocard Administered 11/15/16 19:24 Dose 12 mg .ROUTE .STK-MED ONE Sodium Chloride 1,000 mls @ 999 mls/hr 11/15/16 17:29 11/15/16 17:32 Normal Saline IV 11/15/16 18:29 999 mls/hr .BOLUS ONE Administration Metoprolol Tartrate 100 mg 11/15/16 16:50 11/15/16 16:54 Lopressor PO 11/15/16 16:51 100 mg ONETIME ONE Administration
[2016-11-15 17:26] LABS: CHLORIDE,CL 102 mmol/L (101-111); SODIUM,NA 140 mmol/L (135-145)
[2016-11-15] MEDS ORDERED: Sodium Chloride 0.9% 1,000 ML IV ONE (17:29)
[2016-11-15 18:45] VITALS: BP 111/47
[2016-11-15] MEDS ORDERED: Adenosine 6 MG/2 ML SDV IVPUSH ONE (19:09)
[2016-11-15] MEDS ORDERED: Adenosine 12 MG/4 ML SDV IVPUSH ONE (19:21)
[2016-11-15] MEDS ORDERED: Adenosine 12 MG/4 ML SDV ONE (19:23)
--- NOTE | 2016-11-18 10:24 | EKG ---
11/15/2016 - BRANDONSANTO PLEITEZILA CACHORRO - TIME: 1647. EKG is sinus tachycardia with a rate of 144. There is diffuse T-wave inversion. IMPRESSION: Abnormal EKG as noted above compatible with myocardial ischemia. [facility] /[id number]
--- NOTE | 2016-11-18 10:24 | EKG ---
11/15/2016 - SAMEER TAYLOR CACHORRO - TIME: 1942. EKG is sinus rhythm with a rate of 76. Normal MA interval. Normal axis. EKG is now within normal limits as compared to previous EKG. [facility] /[id number]
== END 2016-11-15 21:33 | disposition home or self-care (01) ==
LOC: DL.ED 16:34
DX: I47.1 Supraventricular tachycardia (principal); F17.210 Nicotine dependence, cigarettes, uncomplicated; Z90.49 Acquired absence of other specified parts of digestive tract; Z98.890 Other specified postprocedural states; Z79.899 Other long term (current) drug therapy
CPT/HCPCS: 36415; 80053; 84484; 85025; 96361; 96374; 99284; A9270; J0153; J7030

== ENCOUNTER 2016-11-21 19:50 | Emergency (ER) | payer BC ==
[2016-11-21] MEDS ORDERED: Adenosine 6 MG/2 ML SDV IVPUSH ONE (19:59)
--- NOTE | 2016-11-21 20:02 | EDM.PDOC ---
ED HPI GENERAL MEDICAL PROBLEM - General Stated Complaint: HEART RATE 155 Time Seen by Provider: 11/21/16 20:00 Source of Information: Reports: Patient History Limitations: Reports: No Limitations - History of Present Illness INITIAL COMMENTS - FREE TEXT/NARRATIVE: gives recurrent h/o svt, present episode 2 hours ago while working. had appt' for 2nd ablation by broadcast meteorologist @ [facility] . some pain some pressure sensation some SOB just like usual. 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) Other OB/BYN History: 1996 and v-back 2001 Musculoskeletal History: Reports: Fracture Neurological History: Reports: None Psychiatric History: Reports: None Endocrine/Metabolic History: Reports: None Hematologic History: Reports: Blood Transfusion(s) Immunologic History: Reports: None Oncologic (Cancer) History: Reports: None Dermatologic History: Reports: Other (See Below) Other Dermatologic History: mole removed - Past Surgical History Cardiovascular Surgical History: Reports: Cardiac Ablation Other Cardiovascular Surgeries/Procedures: Cardiac Ablation in July or August 2016 GI Surgical History: Reports: Cholecystectomy Other GI Surgeries/Procedures: 2003 Musculoskeletal Surgical History: Reports: Other (See Below) Other Musculoskeletal Surgeries/Procedures:: bilateral ankle and wrist fractures Social & Family History - Family History Family Medical History: Noncontributory - Tobacco Use Smoking Status *Q: Current Status Unknown Years of Tobacco use: 15 Packs/Tins Daily: 0.5 Second Hand Smoke Exposure: Yes - Caffeine Use Caffeine Use: Reports: Coffee, Tea Other Caffeine Use: stopped caffine 2 days ago - Alcohol Use Days Per Week of Alcohol Use: 1 Number of Drinks Per Day: 1 Total Drinks Per Week: 1 - Recreational Drug Use Recreational Drug Use: No ED ROS GENERAL - Review of Systems Review Of Systems: ROS reveals no pertinent complaints other than HPI. ED EXAM, GENERAL - Physical Exam Exam: See Below Exam Limited By: No Limitations General Appearance: Alert, WD/WN, Mild Distress, Other (chest discomfort) Ears: Hearing Grossly Normal Throat/Mouth: Normal Voice, No Airway Compromise Head: Atraumatic Neck: Non-Tender, Full Range of Motion Respiratory/Chest: No Respiratory Distress Cardiovascular: Tachycardia GI/Abdominal: Soft, Non-Tender Neurological: Alert, Oriented, Normal Cognition, Normal Gait, No Motor/Sensory Deficits Psychiatric: Anxious Skin Exam: Warm, Dry, Normal Color Lymphatic: No Adenopathy Course - Vital Signs Last Recorded V/S: Last Vital Signs Temp 35.8 C 11/21/16 20:21 Pulse 148 H 11/21/16 20:21 Resp 19 11/21/16 20:21 BP 117/70 11/21/16 20:21 Pulse Ox 99 11/21/16 20:21 - Orders/Labs/Meds Orders: Active Orders 24 hr Category Date Time Status EKG 12 Lead [EKG Documentation Completion] [RC] STAT Care 11/21/16 19:59 Active Labs: Laboratory Tests 11/21/16 11/21/16 Range/Units 20:00 20:00 WBC 8.7 (5.0-10.0) 10^3/uL RBC 4.81 (4.2-5.4) 10^6/uL Hgb 14.2 (12.0-16.0) g/dL Hct 42.5 (37.0-47.0) % MCV 88.4 (80-100) fL MCH 29.5 (27.0-34.0) pg MCHC 33.4 (33.0-35.0) g/dL Plt Count 201 (150-450) 10^3/uL Neut % (Auto) 59.7 (42.2-75.2) % Lymph % (Auto) 28.5 (20.5-50.1) % [place] % (Auto) 7.3 (2-8) % Eos % (Auto) 3.9 H (1.0-3.0) % Baso % (Auto) 0.6 (0.0-1.0) % Sodium 144 (135-145) mmol/L Potassium 4.2 (3.6-5.0) mmol/L Chloride 105 (101-111) mmol/L Carbon Dioxide 27.0 (21.0-31.0) mmol/L Anion Gap 16.2 BUN 15 (7-18) mg/dL Creatinine 0.9 (0.6-1.3) mg/dL Est Cr Clr Drug Dosing 83.82 mL/min Estimated GFR (MDRD) > 60 BUN/Creatinine Ratio 16.66 Glucose 100 (74-105) mg/dL Calcium 8.8 (8.4-10.2) mg/dl Total Bilirubin 0.4 (0.2-1.0) mg/dL AST 19 (10-42) IU/L ALT 21 (10-60) IU/L Alkaline Phosphatase 88 (42-121) IU/L Troponin I < 0.02 (0.00-0.02) ng/ml Total Protein 7.3 (6.7-8.2) g/dl Albumin 3.7 (3.2-5.5) g/dl Globulin 3.6 Albumin/Globulin Ratio 1.03 Meds: Medications Discontinued Medications Generic Name Dose Route Start Last Admin Trade Name Freq PRN Reason Stop Dose Admin Adenosine 6 mg 11/21/16 19:59 11/21/16 20:08 Adenocard IVPUSH 11/21/16 20:00 6 mg NOW ONE Administration Adenosine 12 mg 11/21/16 20:10 11/21/16 20:17 Adenocard IVPUSH 11/21/16 20:11 12 mg NOW ONE Administration Adenosine 12 mg 11/21/16 20:57 11/21/16 21:02 Adenocard IVPUSH 11/21/16 20:58 12 mg NOW ONE Administration - Re-Assessments/Exams Free Text/Narrative Re-Assessment/Exam: 11/21/16 20:55 Iv adeno x2 = '0'. pt states Dr Slaughter rec' no B-blockers or cardiov since she is having ablation done . GF contacted Dr Felton consulted with Dr Slaughter and final decision is to repeat adeno and give B-blockers prn. 11/21/16 21:25 re-exam; s/p adeno = converted. pt feels good wants to go home but will return prn. Departure - Departure Time of Disposition: 21:26 Disposition: Home, Self-Care 01 Condition: Good Clinical Impression: SVT (supraventricular tachycardia) Instructions: Paroxysmal Supraventricular Tachycardia, [id number] Forms: ED Department Discharge Additional Instructions: 1) rest 2) avoid excess stimulations or vigorous activities 3) must return if there is any change or concern - My Orders Last 24 Hours: My Active Orders 11/21/16 19:59 EKG 12 Lead [EKG Documentation Completion] [RC] STAT - Assessment/Plan Last 24 Hours: My Active Orders 11/21/16 19:59 EKG 12 Lead [EKG Documentation Completion] [RC] STAT
[2016-11-21] MEDS ORDERED: Adenosine 12 MG/4 ML SDV IVPUSH ONE ×2 (20:10→20:57)
[2016-11-21 20:27] VITALS: BP 117/70
[2016-11-21 20:27] LABS: CHLORIDE,CL 105 mmol/L (101-111); SODIUM,NA 144 mmol/L (135-145)
--- NOTE | 2016-11-30 10:59 | EKG ---
11/21/2016- SAMEER TAYLOR - This is a standard 12-lead EKG showing junctional tachycardia with a ventricular rate of 147 beats per minute. Some abnormal ST-T changes into the lateral leads. Abnormal EKG. [facility] /[id number]
== END 2016-11-21 21:35 | disposition home or self-care (01) ==
LOC: DL.ED 19:50
DX: I47.1 Supraventricular tachycardia (principal); F17.210 Nicotine dependence, cigarettes, uncomplicated; Z90.49 Acquired absence of other specified parts of digestive tract; Z98.890 Other specified postprocedural states; Z79.899 Other long term (current) drug therapy
CPT/HCPCS: 36415; 80053; 84484; 85025; 93005; 96374; 96376; 99284; J0153

== ENCOUNTER 2016-11-24 01:10 | Emergency (ER) | payer BC ==
[2016-11-24 01:16] VITALS: BP 131/73
[2016-11-24] MEDS ORDERED: Adenosine 6 MG/2 ML SDV IVPUSH ONE (01:17)
[2016-11-24] MEDS ORDERED: Sodium Chloride 0.9% 1,000 ML IV ONE (01:18)
[2016-11-24] MEDS ORDERED: Adenosine 12 MG/4 ML SDV IVPUSH ONE ×2 (01:44→01:52)
[2016-11-24 02:05] LABS: CHLORIDE,CL 103 mmol/L (101-111); SODIUM,NA 143 mmol/L (135-145)
--- NOTE | 2016-11-24 02:16 | EDM.PDOC ---
ED HPI GENERAL MEDICAL PROBLEM - General Chief Complaint: Cardiovascular Problem Stated Complaint: HIGH HEART RATE Time Seen by Provider: 11/24/16 01:15 Source of Information: Reports: Patient History Limitations: Reports: No Limitations - History of Present Illness INITIAL COMMENTS - FREE TEXT/NARRATIVE: Onset around 9pm of rapid heart rate. Hx SVT. recent ED visits for same. CHest pain gradually increasing as high rate continues. Some SoB. Has had prior abilattion procedure. Cardiology appointment later this week to reevaluate and decide if additional abilation or pacemaker placement. Ompliant with medication. No alcohol or caffeine. Continues to smoke. Onset: Today Duration: Hour(s): Mid-Sternal Chest Pain Score (Numeric/FACES): 2 - Related Data Allergies Allergy/AdvReac Type Severity Reaction Status Date / Time No Known Allergies Allergy Verified 11/24/16 01:16 Home Meds: Home Meds Metoprolol Tartrate 50 mg PO DAILY 07/10/16 [History] Past Medical History HEENT History: Reports: None Cardiovascular History: Reports: Other (See Below) Other Cardiovascular History: SVT 8-19 years ago that required adenosine x 6 mg and 12 mg Respiratory History: Reports: None Gastrointestinal History: Reports: Cholelithiasis Genitourinary History: Reports: None VASCULAR TECH History: Reports: Other (See Below) Other OB/BYN History: 1996 and v-back 2001 Musculoskeletal History: Reports: Fracture Neurological History: Reports: None Psychiatric History: Reports: None Endocrine/Metabolic History: Reports: None Hematologic History: Reports: Blood Transfusion(s) Immunologic History: Reports: None Oncologic (Cancer) History: Reports: None Dermatologic History: Reports: Other (See Below) Other Dermatologic History: mole removed - Past Surgical History Cardiovascular Surgical History: Reports: Cardiac Ablation Other Cardiovascular Surgeries/Procedures: Cardiac Ablation in July or August 2016 GI Surgical History: Reports: Cholecystectomy Other GI Surgeries/Procedures: 2003 Musculoskeletal Surgical History: Reports: Other (See Below) Other Musculoskeletal Surgeries/Procedures:: bilateral ankle and wrist fractures Social & Family History - Family History Family Medical History: Noncontributory - Tobacco Use Smoking Status *Q: Current Every Day Smoker Years of Tobacco use: 20 Packs/Tins Daily: 0.5 Second Hand Smoke Exposure: Yes - Caffeine Use Caffeine Use: Reports: Coffee, Tea Other Caffeine Use: stopped caffine 2 days ago - Alcohol Use Days Per Week of Alcohol Use: 1 Number of Drinks Per Day: 1 Total Drinks Per Week: 1 - Recreational Drug Use Recreational Drug Use: No ED ROS GENERAL - Review of Systems Review Of Systems: See Below Constitutional: Reports: No Symptoms HEENT: Reports: No Symptoms Respiratory: Reports: Shortness of Breath Cardiovascular: Reports: Chest Pain, Palpitations. Denies: Lightheadedness, Syncope GI/Abdominal: Reports: No Symptoms Neurological: Reports: No Symptoms Psychiatric: Reports: No Symptoms ED EXAM, GENERAL - Physical Exam Exam: See Below Exam Limited By: No Limitations General Appearance: Alert, Mild Distress Eye Exam: Bilateral Eye: EOMI Ears: Normal External Exam, Normal TMs Nose: Normal Inspection Throat/Mouth: Normal Inspection Head: Atraumatic, Normocephalic Neck: Normal Inspection, Full Range of Motion. No: Carotid Bruit Respiratory/Chest: No Respiratory Distress, Lungs Clear, Normal Breath Sounds Cardiovascular: Normal Peripheral Pulses, Regular Rate, Rhythm, No Edema, Tachycardia GI/Abdominal: Normal Bowel Sounds, Soft Neurological: Alert, Oriented, Normal Cognition Psychiatric: Normal Affect, Normal Mood Skin Exam: Warm, Dry, Intact, Normal Color Course - Vital Signs Last Recorded V/S: Last Vital Signs Temp 97.4 F 11/24/16 01:11 Pulse 149 H 11/24/16 01:11 Resp 18 11/24/16 01:11 BP 131/73 11/24/16 01:11 Pulse Ox 99 11/24/16 01:11 - Orders/Labs/Meds Labs: Laboratory Tests 11/24/16 11/24/16 11/24/16 Range/Units 01:38 01:38 01:38 WBC 8.7 (5.0-10.0) 10^3/uL RBC 4.54 (4.2-5.4) 10^6/uL Hgb 13.3 (12.0-16.0) g/dL Hct 40.8 (37.0-47.0) % MCV 89.9 (80-100) fL MCH 29.3 (27.0-34.0) pg MCHC 32.6 L (33.0-35.0) g/dL Plt Count 192 (150-450) 10^3/uL Neut % (Auto) 57.7 (42.2-75.2) % Lymph % (Auto) 31.1 (20.5-50.1) % [place] % (Auto) 6.0 (2-8) % Eos % (Auto) 4.5 H (1.0-3.0) % Baso % (Auto) 0.7 (0.0-1.0) % Sodium 143 (135-145) mmol/L Potassium 3.7 (3.6-5.0) mmol/L Chloride 103 (101-111) mmol/L Carbon Dioxide 27.0 (21.0-31.0) mmol/L Anion Gap 16.7 BUN 15 (7-18) mg/dL Creatinine 0.9 (0.6-1.3) mg/dL Est Cr Clr Drug Dosing TNP Estimated GFR (MDRD) > 60 BUN/Creatinine Ratio 16.66 Glucose 107 H (74-105) mg/dL Calcium 9.1 (8.4-10.2) mg/dl Total Bilirubin 0.3 (0.2-1.0) mg/dL AST 15 (10-42) IU/L ALT 19 (10-60) IU/L Alkaline Phosphatase 84 (42-121) IU/L CK-MB (CK-2) 1.50 (0.4-4.7) ng/mL Troponin I < 0.02 (0.00-0.02) ng/ml Total Protein 6.9 (6.7-8.2) g/dl Albumin 3.7 (3.2-5.5) g/dl Globulin 3.2 Albumin/Globulin Ratio 1.16 Meds: Medications Discontinued Medications Generic Name Dose Route Start Last Admin Trade Name Wale PRN Reason Stop Dose Admin Adenosine 6 mg 11/24/16 01:17 11/24/16 01:42 Adenocard IVPUSH 11/24/16 01:18 6 mg NOW ONE Administration Adenosine 12 mg 11/24/16 01:44 11/24/16 01:48 Adenocard IVPUSH 11/24/16 01:45 12 mg NOW ONE Administration Adenosine 12 mg 11/24/16 01:52 11/24/16 01:56 Adenocard IVPUSH 11/24/16 01:53 12 mg NOW ONE Administration Sodium Chloride 1,000 mls @ 500 mls/hr 11/24/16 01:18 09/26/17 01:40 Normal Saline IV 11/24/16 03:17 500 mls/hr .BOLUS ONE Administration - Re-Assessments/Exams Free Text/Narrative Re-Assessment/Exam: No response with first dose Adenosine 6mg rapid IVP or second dose 12mg. Third dose conversion to NSR rate 80's. Departure - Departure Time of Disposition: 02:15 Disposition: Home, Self-Care 01 Condition: Fair Clinical Impression: Paroxysmal supraventricular tachycardia Instructions: Paroxysmal Supraventricular Tachycardia, [id number] Referrals: PCP,None [Primary Care Provider] - Forms: ED Department Discharge Additional Instructions: rest, off work until abilation on Follow up with cardiology office in am. avoid caffeine and smoking
--- NOTE | 2016-11-27 06:36 | EKG ---
11/24/2016 - SAMEER TAYLOR - TIME: 1:59 a.m. This is the second of two 12-lead EKGs performed approximately 30 minutes apart. This EKG shows resolution of the previously seen SVT following treatment with adenosine. There is a normal sinus rhythm with a ventricular rate of 81. No acute ST-T wave changes. The previously seen T-wave abnormalities have resolved following treatment. [facility] /[id number]
--- NOTE | 2016-11-27 06:54 | EKG ---
11/24/2016 - SAMEER TAYLOR - This is the first of two 12-lead EKGs done approximately 30 minutes apart. This 12-lead EKG shows SVT with a ventricular rate of 143. T-wave changes are most likely related to rate. This patient has a history of paroxysmal SVT. [facility] /[id number]
== END 2016-11-24 02:26 | disposition home or self-care (01) ==
LOC: DL.ED 01:10
DX: I47.1 Supraventricular tachycardia (principal); F17.210 Nicotine dependence, cigarettes, uncomplicated; Z79.899 Other long term (current) drug therapy; Z90.49 Acquired absence of other specified parts of digestive tract
CPT/HCPCS: 36415; 80053; 82553; 84484; 85025; 93005; 96361; 96374; 99285; J0153; J7030

== ENCOUNTER 2017-03-15 23:09 | Emergency (ER) | payer BC ==
[2017-03-15 23:20] VITALS: BP 135/77
--- NOTE | 2017-03-15 23:25 | EDM.PDOC ---
ED HPI GENERAL MEDICAL PROBLEM - General Stated Complaint: HEARTRATE OF 148 Time Seen by Provider: 03/15/17 23:21 Source of Information: Reports: Patient History Limitations: Reports: No Limitations - History of Present Illness INITIAL COMMENTS - FREE TEXT/NARRATIVE: gives long h/o rapid heart , had 3 ablations already and now is pending pacemaker on , was watching TV and HR suddenly went up to 148 but now it went back down, denies CP/SOB presently, also cardiolog Dr Meeks told her to stop all her meds till procedure so hadn't taken her b-brianda. 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 (See Below) Other OB/BYN History: 1996 and v-back 2001 Musculoskeletal History: Reports: Fracture Neurological History: Reports: None Psychiatric History: Reports: None Endocrine/Metabolic History: Reports: None Hematologic History: Reports: Blood Transfusion(s) Immunologic History: Reports: None Oncologic (Cancer) History: Reports: None Dermatologic History: Reports: Other (See Below) Other Dermatologic History: mole removed - Past Surgical History Cardiovascular Surgical History: Reports: Cardiac Ablation Other Cardiovascular Surgeries/Procedures: Cardiac Ablation in July or August 2016 GI Surgical History: Reports: Cholecystectomy Other GI Surgeries/Procedures: 2003 Musculoskeletal Surgical History: Reports: Other (See Below) Other Musculoskeletal Surgeries/Procedures:: bilateral ankle and wrist fractures Social & Family History - Family History Family Medical History: Noncontributory - Tobacco Use Smoking Status *Q: Current Every Day Smoker Years of Tobacco use: 20 Packs/Tins Daily: 0.5 Second Hand Smoke Exposure: Yes - Caffeine Use Caffeine Use: Reports: Coffee, Tea Other Caffeine Use: stopped caffine 2 days ago - Alcohol Use Days Per Week of Alcohol Use: 1 Number of Drinks Per Day: 1 Total Drinks Per Week: 1 - Recreational Drug Use Recreational Drug Use: No ED ROS GENERAL - Review of Systems Review Of Systems: ROS reveals no pertinent complaints other than HPI. ED EXAM, GENERAL - Physical Exam Exam: See Below Exam Limited By: No Limitations General Appearance: Alert, WD/WN, No Apparent Distress Ears: Hearing Grossly Normal Throat/Mouth: Normal Voice, No Airway Compromise Head: Atraumatic Neck: Non-Tender, Full Range of Motion Respiratory/Chest: No Respiratory Distress Cardiovascular: Regular Rate, Rhythm GI/Abdominal: Soft, Non-Tender Neurological: Alert, Oriented, Normal Cognition, Normal Gait, No Motor/Sensory Deficits Psychiatric: Normal Affect, Normal Mood Skin Exam: Warm, Dry, Normal Color Lymphatic: No Adenopathy Course - Vital Signs Last Recorded V/S: Last Vital Signs Temp 36.9 C 03/15/17 23:13 Pulse 104 H 03/15/17 23:13 Resp 18 03/15/17 23:13 BP 135/77 03/15/17 23:13 Pulse Ox 99 03/15/17 23:13 - Orders/Labs/Meds Orders: Active Orders 24 hr Category Date Time Status EKG 12 Lead [EKG Documentation Completion] [RC] STAT Care 03/15/17 23:20 Active Labs: Laboratory Tests 03/15/17 03/15/17 Range/Units 23:30 23:30 WBC 7.8 (5.0-10.0) 10^3/uL RBC 4.72 (4.2-5.4) 10^6/uL Hgb 13.2 (12.0-16.0) g/dL Hct 40.5 (37.0-47.0) % MCV 85.8 D (80-100) fL MCH 28.0 (27.0-34.0) pg MCHC 32.6 L (33.0-35.0) g/dL Plt Count 197 (150-450) 10^3/uL Neut % (Auto) 57.1 (42.2-75.2) % Lymph % (Auto) 31.9 (20.5-50.1) % [place] % (Auto) 6.1 (2-8) % Eos % (Auto) 4.3 H (1.0-3.0) % Baso % (Auto) 0.6 (0.0-1.0) % Sodium 138 (135-145) mmol/L Potassium 3.6 (3.6-5.0) mmol/L Chloride 105 (101-111) mmol/L Carbon Dioxide 22.0 (21.0-31.0) mmol/L Anion Gap 14.6 BUN 20 H (7-18) mg/dL Creatinine 1.0 (0.6-1.3) mg/dL Est Cr Clr Drug Dosing 75.44 mL/min Estimated GFR (MDRD) > 60 BUN/Creatinine Ratio 20.00 Glucose 114 H (74-105) mg/dL Calcium 8.6 (8.4-10.2) mg/dl Total Bilirubin 0.2 (0.2-1.0) mg/dL AST 25 (10-42) IU/L ALT 21 (10-60) IU/L Alkaline Phosphatase 90 (42-121) IU/L Troponin I < 0.02 (0.00-0.02) ng/ml Total Protein 6.7 (6.7-8.2) g/dl Albumin 3.6 (3.2-5.5) g/dl Globulin 3.1 Albumin/Globulin Ratio 1.16 - Re-Assessments/Exams Free Text/Narrative Re-Assessment/Exam: 03/16/17 00:31 re-exam; pt's HR has episodic speeding up. 03/16/17 00:[address] Morales who kindly accepted pt. Departure - Departure Time of Disposition: 00:57 Disposition: DC/Tfer to Acute Hospital 02 Reason for Transfer *Q: Other Condition: Good Clinical Impression: Paroxysmal supraventricular tachycardia Forms: Interfacility Transfer EMTALA - My Orders Last 24 Hours: My Active Orders 03/15/17 23:20 EKG 12 Lead [EKG Documentation Completion] [RC] STAT - Assessment/Plan Last 24 Hours: My Active Orders 03/15/17 23:20 EKG 12 Lead [EKG Documentation Completion] [RC] STAT
[2017-03-16] LABS: CHLORIDE,CL 105 mmol/L (101-111); SODIUM,NA 138 mmol/L (135-145)
--- NOTE | 2017-03-17 11:17 | EKG ---
03/15/2017- SAMEER TAYLOR - EKG per my reading shows right bundle-branch block. [facility] /[id number]
== END 2017-03-16 01:30 ==
LOC: DL.ED 23:09
DX: I47.1 Supraventricular tachycardia (principal); F17.210 Nicotine dependence, cigarettes, uncomplicated
CPT/HCPCS: 36415; 71045; 80053; 84484; 85025; 93005; 99285